=== PATIENT | female | born 1995 | race African-American/Black ===

== ENCOUNTER → 2023-10-17 | Outpatient (CLI) | payer BC ==
[2023-10-17 11:46] LABS: BASOPHILS % 0.7 % (0.0-2.0); EOSINOPHILS % 0.3 % (0.0-5.0); HEMATOCRIT. 38.2 % (36.0-48.0); HEMOGLOBIN. 12.9 g/dL (12.0-16.0); LYMPHOCYTES % 35.7 % (20.0-50.0); MEAN CORPUSCULAR HEMOGLOBIN 29.6 pg (28.0-32.0); MEAN CORPUSCULAR HGB CONC 33.7 g/dL (31.0-37.0); MEAN CORPUSCULAR VOLUME 87.9 fL (81.0-99.0); MEAN PLATELET VOLUME 10.4 fl (7.4-10.4); MONOCYTES % 7.6 % (2.0-8.0); NEUTROPHILS % 55.7 % (40.0-76.0); PLATELET 200 x1000/uL (130-400); RED BLOOD CELL COUNT 4.34 mill/uL (4.2-5.4); RED CELL DISTRIBUTION WIDTH 15.2 % (11.6-14.6); WHITE BLOOD COUNT 4.9 x1000/uL (4.5-11.0)
[2023-10-17 12:20] LABS: CHLORIDE 108 mEq/L (98-107); POTASSIUM 3.3 mEq/L (3.5-5.1); SODIUM 139 mEq/L (136-145)
[2023-10-17 12:21] LABS: CALCIUM 9.3 mg/dL (8.7-10.4); CARBON DIOXIDE 28 mEq/L (21-32)
[2023-10-17 12:25] LABS: CORTISOL 9.7 ucg/dL
[2023-10-17 12:26] LABS: CREATININE 0.7 mg/dL (0.6-1.0); GLUCOSE 90 mg/dL (70-105); IRON 43 ug/dL (50-170); TRIGLYCERIDE 64 mg/dL (0-150); UREA NITROGEN BLOOD 8 mg/dL (9-23)
[2023-10-17 12:27] LABS: LDL CHOLESTEROL 102 mg/dL (5-100)
[2023-10-17 12:28] LABS: ALANINE AMINOTRANSFERASE 11 IU/L (10-49); ALBUMIN 4.3 g/dL (3.2-4.8); ASPARTATE AMINOTRANSFERASE 17 IU/L (<34); CHOLESTEROL 152 mg/dL (<200); HDL CHOLESTEROL 42 mg/dL (>65); PROTEIN TOTAL 7.2 g/dL (6.0-8.3)
[2023-10-17 12:29] LABS: BILIRUBIN TOTAL 0.4 mg/dL (0.1-1.0); THYROID STIMULATING HORMONE 1.58 uIU/mL (0.55-4.78); VITAMIN B12 SERUM 1309 pg/mL (211-911)
[2023-10-17 12:44] LABS: FERRITIN 7 ng/mL (10-291)
[2023-10-19 08:08] LABS: FOLICLE STIMULATING HORMONE 7.2 mIU/mL (.); LUTEINIZING HORMONE 5.8 mIU/mL (.); PROLACTIN 13.4 ng/mL (4.8-33.4)
== END | disposition home or self-care (01) ==
LOC: LAB 10:27
PROVIDERS: ATTEND Internal Medicine Geriatric Medicine
DX: Z00.01 Encounter for general adult medical examination with abnormal findings (principal); N39.0 Urinary tract infection, site not specified
CPT/HCPCS: 36415; 80053; 80061; 82306; 82533; 82607; 82728; 83001; 83002; 83036; 83540; 84146; 84403; 84443; 85025; 86592

== ENCOUNTER → 2023-10-18 | Outpatient (CLI) | payer BC | END | disposition home or self-care (01) | LOC: MAMMO 09:33 → EDUNIT# 10:00 | PROVIDERS: ATTEND Internal Medicine Geriatric Medicine | DX: Z12.31 Encounter for screening mammogram for malignant neoplasm of breast (principal); D25.9 Leiomyoma of uterus, unspecified; E28.2 Polycystic ovarian syndrome | CPT/HCPCS: 76830; 76856; 77063; 77067 ==

== ENCOUNTER → 2023-12-16 | Outpatient (CLI) | payer BC ==
[2023-12-16 09:47] LABS: CHLORIDE 108 mEq/L (98-107); POTASSIUM 3.7 mEq/L (3.5-5.1); SODIUM 139 mEq/L (136-145)
[2023-12-16 09:48] LABS: CARBON DIOXIDE 27 mEq/L (21-32)
[2023-12-16 09:49] LABS: CALCIUM 9.5 mg/dL (8.7-10.4)
[2023-12-16 09:53] LABS: CREATININE 0.7 mg/dL (0.6-1.0); GLUCOSE 85 mg/dL (70-105); IRON 60 ug/dL (50-170)
[2023-12-16 09:54] LABS: UREA NITROGEN BLOOD 5 mg/dL (9-23)
[2023-12-16 09:55] LABS: ALANINE AMINOTRANSFERASE 14 IU/L (10-49); ALBUMIN 4.8 g/dL (3.2-4.8); ASPARTATE AMINOTRANSFERASE 17 IU/L (<34)
[2023-12-16 09:56] LABS: BILIRUBIN TOTAL 0.6 mg/dL (0.1-1.0); PROTEIN TOTAL 7.7 g/dL (6.0-8.3); TOTAL IRON BINDING CAPACITY 375 ug/dl (250-425)
[2023-12-17 08:13] LABS: FOLICLE STIMULATING HORMONE 11.5 mIU/mL (.); LUTEINIZING HORMONE 67.1 mIU/mL (.); PROLACTIN 37.3 ng/mL (4.8-33.4)
== END | disposition home or self-care (01) ==
LOC: LAB 09:13
PROVIDERS: ATTEND Internal Medicine Geriatric Medicine
DX: E87.6 Hypokalemia (principal)
CPT/HCPCS: 36415; 80053; 83001; 83002; 83540; 83550; 83735; 84146; 84403

== ENCOUNTER → 2025-01-05 | Outpatient (CLI) | payer BC ==
[2025-01-05 10:37] LABS: CLARITY URINE CLEAR (CLEAR); COLOR URINE YELLOW (YELLOW); GLUCOSE URINE NEGATIVE (NEGATIVE); KETONES URINE NEGATIVE (NEGATIVE); LEUKOCYTE ESTERASE URINE NEGATIVE (NEGATIVE); NITRITE URINE NEGATIVE (NEGATIVE); OCCULT BLOOD URINE NEGATIVE (NEGATIVE); PH URINE 5.5 (4.5-8.0); PROTEIN URINE NEGATIVE (NEGATIVE); SPECIFIC GRAVITY URINE 1.020 (1.005-1.030); UROBILINOGEN URINE 0.2 E.U./dL (0.2-1.0)
[2025-01-05 11:14] LABS: CREATININE 0.9 mg/dL (0.6-1.0); TRIGLYCERIDE 76 mg/dL (0-150); UREA NITROGEN BLOOD 11 mg/dL (9-23)
[2025-01-05 11:15] LABS: LDL CHOLESTEROL 153 mg/dL (5-100)
[2025-01-05 11:16] LABS: ASPARTATE AMINOTRANSFERASE 16 IU/L (<34); BILIRUBIN TOTAL 0.5 mg/dL (0.1-1.0); PROTEIN TOTAL 7.5 g/dL (6.0-8.3)
[2025-01-05 11:22] LABS: B-HCG QUANTITATIVE < 1 mIU/mL (<6)
[2025-01-05 11:26] LABS: BASOPHILS % 0.6 % (0.0-2.0); EOSINOPHILS % 0.6 % (0.0-5.0); HEMATOCRIT. 38.4 % (36.0-48.0); HEMOGLOBIN. 12.6 g/dL (12.0-16.0); LYMPHOCYTES % 49.7 % (20.0-50.0); MEAN PLATELET VOLUME 12.6 fl (7.4-10.4); MONOCYTES % 6.6 % (2.0-8.0); NEUTROPHILS % 42.5 % (40.0-76.0); PLATELET 175 x1000/uL (130-400); RED BLOOD CELL COUNT 4.55 mill/uL (4.2-5.4); RED CELL DISTRIBUTION WIDTH 17.1 % (11.6-14.6)
[2025-01-05 11:47] LABS: FOLIC ACID (FOLATE) SERUM 8.90 ng/mL (>5.38)
[2025-01-05 11:49] LABS: VITAMIN B12 SERUM 1444 pg/mL (211-911)
[2025-01-05 12:20] LABS: HEPATITIS A AB IGM NEGATIVE (Negative)
[2025-01-05 12:21] LABS: HEPATITIS B CORE AB IGM NEGATIVE (Negative)
[2025-01-05 12:22] LABS: HEPATITIS C AB NON REACTIVE (Neg) (Negative)
[2025-01-07 09:07] LABS: VITAMIN D 25-OH 15.8 ng/mL (30.0-100.0)
[2025-01-07 13:12] LABS: ESTRADIOL 102.0 pg/mL (.); FOLICLE STIMULATING HORMONE 4.8 mIU/mL (.); HSV TYPE 2 SPECIFIC AB IGG Reactive (Non Reactive); LUTEINIZING HORMONE 8.1 mIU/mL (.); PROGESTERONE 16.2 ng/mL (.)
[2025-01-08 04:09] LABS: CHLAMYDIA TRACHOMATIS NAA Negative (Negative); NEISSERIA GONORRHOEAE NAA Negative (Negative)
== END | disposition home or self-care (01) ==
LOC: LAB 09:37
PROVIDERS: ATTEND Internal Medicine Geriatric Medicine
DX: D21.9 Benign neoplasm of connective and other soft tissue, unspecified (principal); Z00.01 Encounter for general adult medical examination with abnormal findings
CPT/HCPCS: 36415; 80053; 80061; 80074; 81003; 82306; 82607; 82670; 82728; 82746; 83001; 83002; 83540; 83550; 84144; 84443; 84702; 85025; 86592; 86695; 86696; 86705; 86709; 87340; 87491; 87591

== ENCOUNTER → 2025-01-08 | Outpatient (CLI) | payer BC | END | disposition home or self-care (01) | LOC: US 08:45 | PROVIDERS: ATTEND Internal Medicine Geriatric Medicine | DX: D25.9 Leiomyoma of uterus, unspecified (principal); R93.89 Abnormal findings on diagnostic imaging of other specified body structures | CPT/HCPCS: 76830; 76856 ==